=== PATIENT | female | born 1940 | race Two or more races ===

== ENCOUNTER 2022-11-04 09:27 | Emergency (ER) | payer OTHER, MEDICAID ==
[~2022-11-04] VITALS: Ht 165.1 cm; Wt 104.0 kg
[2022-11-04] MEDS ORDERED: FUROSEMIDE 40 MG/4 ML VIAL IV ONE (10:00)
[2022-11-04] MEDS ORDERED: methylPREDNISolone SOD SUCC 125 MG/2 ML VL IV ONE (10:00)
[2022-11-04 10:54] LABS: INR 0.96 (0.9-1.15); Partial Thromboplastin Time 23.4 sec (24.6-33.4)
[2022-11-04 10:58] LABS: Albumin 2.8 g/dL (3.4-5.0); Calcium 8.2 mg/dL (8.5-10.1); Potassium 4.5 mmol/L (3.5-5.1)
[2022-11-04 11:00] LABS: Basophils # (auto) 0 10 ^3/uL (0-0.2); Basophils % (auto) 0.3 % (0.0-2.0); Eosinophils # (auto) 0.2 10 ^3/uL (0-0.8); Eosinophils % (auto) 2.6 % (0.0-7.0); Hematocrit 29.4 % (36.0-46.0); Hemoglobin 9.3 g/dL (12.2-16.2); Mean Corpuscular Hemoglobin 28.1 pg (28.0-32.0); Mean Corpuscular Hgb Conc. 31.7 g/dL (32.0-36.0); Mean Corpuscular Volume 88.6 fL (80.0-100.0); Monocytes # (auto) 0.6 10 ^3/uL (0-1.3); Monocytes % (auto) 5.9 % (0.0-12.0); Neutrophils # (auto) 7.4 10 ^3/uL (1.6-8.6); Neutrophils % (auto) 80.2 % (37.0-80.0); Nucleated Red Blood Cells % 0.1 %; Red Blood Cells 3.32 10^6/uL (4.0-5.20); Red Cell Distribution Width 16.3 % (11.8-14.3); White Blood Cell 9.3 10^3/uL (4.4-10.8)
[2022-11-04 11:03] LABS: BUN/Creatinine Ratio 26.8 (10.0-20.0); Bilirubin, Total 0.4 mg/dL (0.2-1.0); Total Protein 5.7 g/dL (6.4-8.2)
[2022-11-04 11:38] LABS: Urine Bacteria NONE SEEN /hpf (None Seen); Urine Blood Negative /uL (Negative); Urine Specific Gravity 1.014 (1.001-1.035); Urine WBC 4 /hpf (0 - 5)
[2022-11-04] MEDS ORDERED: ENOXAPARIN SOD 100 MG/1 ML SYRINGE SC ONE (18:00)
[2022-11-04 18:43] VITALS: BP 149/66
== END 2022-11-04 19:20 | disposition home or self-care (01) ==
LOC: EDBD 09:27 → ER 09:27
DX: R06.03 Acute respiratory distress (principal); I50.9 Heart failure, unspecified; I10 Essential (primary) hypertension; J44.9 Chronic obstructive pulmonary disease, unspecified; E78.5 Hyperlipidemia, unspecified; R51.9 Headache, unspecified; R07.89 Other chest pain
CPT/HCPCS: 36415; 36600; 70450; 71045; 80053; 81001; 82805; 83605; 83880; 84484; 85025; 85379; 85610; 85730; 87040; 93005; 93970; 96372; 96374; 96375; 99285; J1650; J1940; J2930